=== PATIENT | female | born 1955 | race Caucasian/White ===

== ENCOUNTER 2017-09-09 17:19 | Emergency (ER) | payer OTHER ==
--- NOTE | 2017-09-09 18:57 | UC ---
Hand/Wrist HPI - HPI Summary HPI Summary: Pt presents with pain in left wrist s/p fall earlier today. She tells me that she was walking down her driveway to get the mail when she slipped on the wet pavement and landed with her hand outstretched. She had immediate pain. Applied ice and came to urgent care. Denies numbness, tingling, or previous injury. - History Of Current Complaint Stated Complaint: WRIST INJURY Time Seen by Provider: 09/09/17 18:56 Hx Obtained From: Patient Mechanism Of Injury: FOOSH Onset/Duration: Sudden Onset Severity Initially: Moderate Severity Currently: Moderate Pain Intensity: 5 Pain Scale Used: 0-10 Numeric Character Of Pain: Aching, Throbbing, Stiffness Aggravating Factor(s): Lifting, Flexion - Allergies/Home Medications Allergies/Adverse Reactions: Allergies Allergy/AdvReac Type Severity Reaction Status Date / Time No Known Allergies Allergy Verified 09/09/17 18:56 PMH/Surg Hx/FS Hx/Imm Hx Previously Healthy: Yes - Surgical History Surgical History: Yes Surgery Procedure, Year, and Place: HYSTERECTOMY - Family History Known Family History: Positive: None - Social History Occupation: Employed Full-time Lives: With Family Alcohol Use: None Substance Use Type: None Smoking Status (MU): Never Smoked Tobacco Review of Systems Constitutional: Negative Skin: Negative Respiratory: Negative Cardiovascular: Negative Neurovascular: Negative Musculoskeletal: Decreased ROM - Left wrist, Edema - Left wrist, Other: - Pain left wrist Neurological: Negative Psychological: Negative All Other Systems Reviewed And Are Negative: Yes Physical Exam Triage Information Reviewed: Yes Appearance: Well-Appearing, No Pain Distress, Well-Nourished Vital Signs: Initial Vital Signs Temp 99.3 F 09/09/17 18:50 Pulse 65 09/09/17 18:50 Resp 16 09/09/17 18:50 BP 0/0 09/09/17 18:50 Pulse Ox 100 09/09/17 18:50 Vital Signs Reviewed: Yes Neck: Positive: Supple, Nontender, No Lymphadenopathy Respiratory: Positive: Lungs clear, Normal breath sounds, No respiratory distress, No accessory muscle use Cardiovascular: Positive: RRR, No Murmur, Pulses Normal - Left radial and ulnar , Brisk Capillary Refill - Left hand and all fingers Musculoskeletal: Positive: Strength Limited @ - Left wrist due to pain, ROM Limited @ - Left wrist due to pain, Edema @ - Mild at left wrist, Other: - TTP over left radial wrist > than ulnar. Mild snuffbox tenderness. No open fracture Neurological: Positive: Alert, Other: - Sensations intact left hand and all fingers. Psychological: Positive: Age Appropriate Behavior Hand/Wrist Course/Dx - Course Course Of Treatment: Wrist XR: IMPRESSION: 1. PROBABLE NONDISPLACED FRACTURE THROUGH THE RADIAL STYLOID. 2. OSTEOPENIA. Thumb spica splint and f/u with Orthopedics - Differential Dx/Diagnosis Provider Diagnoses: NONDISPLACED FRACTURE THROUGH THE RADIAL STYLOID LEFT Discharge - Discharge Plan Condition: Stable Disposition: HOME Prescriptions: HYDROcodone/ACETAMIN 5-325 MG* [Buford 5-325 TAB*] 1 tab PO BID #8 tab MDD 2 Patient Education Materials: Wrist Fracture in Adults (ED) Referrals: Jadyn FERNANDO,Edward Faria [Primary Care Provider] - Paty Tavarez MD [Medical Doctor] - As Soon As Possible Additional Instructions: If you develop a fever, shortness of breath, chest pain, new or worsening symptoms - please call your PCP or go to the ED. 1) Please use the splint daily until your appointment with orthopedics 2) Please call Orthopedics at the number below to schedule a follow up appointment for this week. 3) May take ibuprofen 600mg every 6-8hrs as needed for pain
[2017-09-09 19:09] VITALS: BP 142/72
--- NOTE | 2017-09-09 19:36 | RAD ---
HISTORY: Left wrist pain, fall COMPARISONS: None VIEWS: 3, Frontal, lateral, and oblique views of the left wrist FINDINGS: BONE DENSITY: There is diffuse osteopenia. BONES: There is a probable nondisplaced fracture through the radial styloid with articular extension. 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 ALIGNMENT: There is no dislocation. SOFT TISSUES: Unremarkable. OTHER FINDINGS: None. IMPRESSION: 1. PROBABLE NONDISPLACED FRACTURE THROUGH THE RADIAL STYLOID. 2. OSTEOPENIA.
== END 2017-09-09 20:07 | disposition home or self-care (01) ==
LOC: UCEAST 17:19
DX: S69.92XA Unspecified injury of left wrist, hand and finger(s), initial encounter (principal); W01.0XXA Fall on same level from slipping, tripping and stumbling without subsequent striking against object, initial encounter; Y93.01 Activity, walking, marching and hiking; Y92.412 Parkway as the place of occurrence of the external cause; Z90.710 Acquired absence of both cervix and uterus; M85.832 Other specified disorders of bone density and structure, left forearm
CPT/HCPCS: 99213; G0463